=== PATIENT | male | born 1940 | race Caucasian/White ===

== ENCOUNTER 2018-06-29 17:13 | Inpatient (IN) | payer OTHER ==
[~2018-06-29] VITALS: Ht 165.1 cm; Wt 69.9 kg
[2018-06-29] MEDS ORDERED: LEVOFLOXACIN 750MG PREMIX 150 ML IV ONE (17:30)
[2018-06-29] MEDS ORDERED: ACETAMINOPHEN 325MG TABLET PO ONE (17:30)
[2018-06-29] MEDS ORDERED: SODIUM CHLORIDE 0.9% 1000ML BAG (SEPSIS BOLUS) IV ONE (17:30)
[2018-06-29 18:14] LABS: HEMATOCRIT. 43.3 % (42.0-52.0); HEMOGLOBIN. 14.8 g/dL (14.0-18.0); MEAN CORPUSCULAR HEMOGLOBIN 29.8 pg (28.0-32.0); MEAN CORPUSCULAR VOLUME 87.1 fL (80.0-94.0); MEAN PLATELET VOLUME 9.2 fl (7.4-10.4); PLATELET 137 x1000/uL (130-400); RED BLOOD CELL COUNT 4.98 mill/uL (4.7-6.1); RED CELL DISTRIBUTION WIDTH 13.7 % (11.6-14.6)
[2018-06-29 18:19] LABS: CHLORIDE 117 mEq/L (98-107)
[2018-06-29 18:21] LABS: INR 1.2; PARTIAL THROMBOPLASTIN TIME 30.9 sec (23.4-31.0); PROTHROMBIN TIME 11.8 sec (9.1-11.1)
[2018-06-29 18:49] LABS: PLATELET ESTIMATE NORMAL
[2018-06-29] MEDS ORDERED: ASPIRIN 325MG EC TABLET PO ONE (19:30)
[2018-06-29] MEDS ORDERED: POTASSIUM CHLORIDE 20MEQ TABLET SR PO ONE (19:30)
[2018-06-29 21:11] LABS: CLARITY URINE CLOUDY (CLEAR); COLOR URINE YELLOW (YELLOW); KETONES URINE NEGATIVE (NEGATIVE); LEUKOCYTE ESTERASE URINE 1+ (NEGATIVE); NITRITE URINE NEGATIVE (NEGATIVE); OCCULT BLOOD URINE NEGATIVE (NEGATIVE); PH URINE 8.5 (4.5-8.0); PROTEIN URINE 1+ (NEGATIVE); SPECIFIC GRAVITY URINE 1.012 (1.005-1.030); UROBILINOGEN URINE 0.2 E.U./dL (0.2-1.0)
[2018-06-30] MEDS ORDERED: ENOXAPARIN 40MG/0.4ML SYR SUBCUT SCH
[2018-06-30] MEDS ORDERED: DOCUSATE SODIUM 100MG CAPSULE PO PRN
[2018-06-30] MEDS ORDERED: LEVOFLOXACIN 500MG PREMIX 100 ML IV SCH
[2018-06-30] MEDS ORDERED: CLONIDINE 0.1MG TABLET PO PRN
[2018-06-30] MEDS ORDERED: MAGNESIUM/ALUMINUM HYDROXIDE/SIMETHICONE 30ML UDC PO PRN
[2018-06-30] MEDS ORDERED: HYDROCODONE/ACETAMINOPHEN 5/325MG TABLET PO PRN
[2018-06-30] MEDS ORDERED: GUAIFENESIN 200MG/10ML SUGAR FREE UDC PO PRN
[2018-06-30] MEDS ORDERED: ONDANSETRON HCL 4MG/2ML VIAL IV PRN
[2018-06-30] MEDS ORDERED: ACETAMINOPHEN 325MG TABLET PO PRN
[2018-06-30] MEDS: DEXT 5%/0.45% NACL 1000ML 1,000 ML IV SCH (05:38)
[2018-06-30] MEDS ORDERED: ONDANSETRON 4MG ODT PO PRN (09:45)
[2018-06-30 10:43] LABS: HEMATOCRIT. 41.4 % (42.0-52.0); MEAN CORPUSCULAR HEMOGLOBIN 29.7 pg (28.0-32.0); MEAN CORPUSCULAR VOLUME 88.1 fL (80.0-94.0); MEAN PLATELET VOLUME 9.2 fl (7.4-10.4); PLATELET 114 x1000/uL (130-400); RED BLOOD CELL COUNT 4.71 mill/uL (4.7-6.1)
[2018-06-30 10:58] LABS: CHLORIDE 120 mEq/L (98-107)
[2018-06-30 11:00] VITALS: BP 99/59
[2018-06-30 11:08] LABS: T4 FREE 1.21 ng/dL (0.76-1.46)
[2018-06-30 12:00] VITALS: BP 99/59
[2018-06-30] MEDS ORDERED: CEFEPIME 2,000 MG in DEXT 5% WATER 100 ML IV SCH (12:00)
[2018-06-30] MEDS: ASPIRIN 81MG EC TABLET PO SCH (12:11)
[2018-06-30] MEDS: ENOXAPARIN 40MG/0.4ML SYR SUBCUT SCH (12:13)
[2018-06-30 14:32] LABS: PLATELET ESTIMATE SLIGHTLY DECREASED
[2018-06-30 16:00] VITALS: BP 101/61
[2018-06-30] MEDS ORDERED: DIATR MEGLU/DIATRIZOATE SOLN 30ML PO SCH (16:00)
[2018-06-30] MEDS ORDERED: LEVOFLOXACIN 250MG PREMIX 50 ML IV SCH (18:00)
[2018-06-30 20:00] VITALS: BP 103/53
[2018-06-30] MEDS ORDERED: AZITHROMYCIN 500 MG TABLET PO SCH (20:00)
[2018-06-30] MEDS ORDERED: DIATR MEGLU/DIATRIZOATE SOLN 30ML PO ONE (22:15)
[2018-07-01] VITALS: BP 110/50
[2018-07-01 04:00] VITALS: BP 143/62
[2018-07-01] MEDS ORDERED: DIATR MEGLU/DIATRIZOATE SOLN 30ML PO SCH (04:45)
[2018-07-01] MEDS: DEXT 5%/0.45% NACL 1000ML 1,000 ML IV SCH ×2 (06:06→13:36)
[2018-07-01 08:00] VITALS: BP 123/78
[2018-07-01] MEDS: ASPIRIN 81MG EC TABLET PO SCH (08:48)
[2018-07-01] MEDS: ENOXAPARIN 40MG/0.4ML SYR SUBCUT SCH (08:55)
[2018-07-01] MEDS ORDERED: CEFEPIME 2,000 MG in DEXT 5% WATER 100 ML IV SCH (09:00)
[2018-07-01 12:00] VITALS: BP 127/75
[2018-07-01 13:08] LABS: HEMATOCRIT. 41.3 % (42.0-52.0); HEMOGLOBIN. 14.2 g/dL (14.0-18.0); MEAN CORPUSCULAR HEMOGLOBIN 29.9 pg (28.0-32.0); MEAN CORPUSCULAR VOLUME 86.8 fL (80.0-94.0); MEAN PLATELET VOLUME 9.9 fl (7.4-10.4); PLATELET 80 x1000/uL (130-400); RED BLOOD CELL COUNT 4.76 mill/uL (4.7-6.1)
[2018-07-01 14:01] LABS: PLATELET ESTIMATE DECREASED
[2018-07-01 16:00] VITALS: BP 139/87
[2018-07-01] MEDS ORDERED: CEFAZOLIN 2,000 MG in DEXT 5% WATER 100 ML IV SCH (16:00)
[2018-07-01 19:02] VITALS: BP 139/87
== END 2018-07-01 19:53 | disposition short-term general hospital (02) | DRG 871 ==
LOC: ER 17:29 → 7WST 19:28 → UNDOADMIN 19:28 → 7WST 19:29 → SUPCPDRO 23:56 → ENRESERV 06-30 06:54
PROVIDERS: ADMIT Hospitalist; ATTEND Hospitalist
DX: A41.50 Gram-negative sepsis, unspecified (principal); J96.00 Acute respiratory failure, unspecified whether with hypoxia or hypercapnia; J18.9 Pneumonia, unspecified organism; I47.1 Supraventricular tachycardia; N13.6 Pyonephrosis; R65.20 Severe sepsis without septic shock; I10 Essential (primary) hypertension; K80.20 Calculus of gallbladder without cholecystitis without obstruction; D69.6 Thrombocytopenia, unspecified; N28.9 Disorder of kidney and ureter, unspecified; B96.20 Unspecified Escherichia coli [E. coli] as the cause of diseases classified elsewhere; A41.9 Sepsis, unspecified organism; D71 Functional disorders of polymorphonuclear neutrophils; K57.30 Diverticulosis of large intestine without perforation or abscess without bleeding; Z85.51 Personal history of malignant neoplasm of bladder; Z86.11 Personal history of tuberculosis; Z90.49 Acquired absence of other specified parts of digestive tract
CPT/HCPCS: 36415; 71045; 71250; 74176; 80048; 80053; 81003; 83605; 83690; 84439; 84443; 84484; 85025; 85610; 85730; 86850; 86900; 87040; 87077; 87086; 87186; 93005; 93306; 93970; 96365; 96366; 99285; J0690; J0692; J1650; J1956; J7030; J7060; Q9963